=== PATIENT | male | born 1945 | race Caucasian/White ===

== ENCOUNTER 2020-02-28 11:58 | Emergency (ER) | payer MEDICARE, BC ==
--- NOTE | 2020-02-28 12:43 | EDM.PDOC ---
ED HPI GENERAL MEDICAL PROBLEM - General Chief Complaint: Cardiovascular Problem Stated Complaint: LEFT ARM NUMBNESS Time Seen by Provider: 02/28/20 12:27 Source of Information: Reports: Patient, Family History Limitations: Reports: No Limitations - History of Present Illness INITIAL COMMENTS - FREE TEXT/NARRATIVE: 74-year-old male presents to the ED for evaluation of sudden onset of severe sharp stabbing pain that started in his left upper arm shoulder anteriorly and then radiate into his left anterior upper chest. He states this is one of the worst pains he is ever experienced. He had to stop his 0 turn lawnmower that he was using at the time and going to the house. He states he took 10 aspirin tablets and within 10 to 15 minutes his pain was gone. At present he feels fine. He has no known coronary artery disease problems. 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 Pain started about 2 hours ago and is now completely gone. He of course is quite anxious. He knows that he has pain in both of his shoulders with rotator cuff disease with no previous surgery in either shoulder. Onset: Today, Sudden Onset Date: 02/28/20 Onset Time: 10:45 Duration: Hour(s):, Other (Pain has resolved completely.) Location: Reports: Upper Extremity, Left (Started in his left upper arm shoulder and then radiate into his left anterior upper chest. It was extremely sharp and stabbing like he been stabbed by a knife.) Quality: Reports: Sharp, Stabbing Severity: Severe (Was 10 out of 10.) Improves with: Reports: Medication (Improved after taking 10 aspirins and 15 to 20 minutes of time.) Worsens with: Reports: None Context: Reports: Other (He was riding his 0 turn lawnmower at the time which uses both anterior arms and shoulders to operate.). 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 (Took 10 aspirins by mouth when he went into the house.) - Related Data Allergies Allergy/AdvReac Type Severity Reaction Status Date / Time hydromorphone HCl AdvReac Severe Nausea and Verified 07/19/20 12:10 [From Dilaudid] Vomiting Home Meds: Home Meds Sertraline HCl 50 mg PO DAILY 05/20/14 [History] Multivitamin [Multivitamins] 1 tab PO DAILY 02/28/20 [History] [place]-3/DHA/Epa/Fish Oil [Fish Oil 1,000 mg Softgel] 1 tab PO DAILY 02/28/20 [History] Past Medical History Musculoskeletal History: Reports: Back Pain, Chronic, Osteoarthritis ( rotator cuff disease in both shoulders.), Other (See Below) (Has known bilateral) - Past Surgical History HEENT Surgical History: Reports: Cataract Surgery GI Surgical History: Reports: Cholecystectomy, Hernia Repair/Other Musculoskeletal Surgical History: Reports: Hip Replacement Social & Family History - Tobacco Use Smoking Status *Q: Never Smoker Second Hand Smoke Exposure: No - Caffeine Use Caffeine Use: Reports: None - Recreational Drug Use Recreational Drug Use: No - Living Situation & Occupation Living situation: Reports: Occupation: Employed ED ROS GENERAL - Review of Systems Review Of Systems: See Below Constitutional: Reports: No Symptoms HEENT: Reports: Glasses Respiratory: Denies: Shortness of Breath, Wheezing, Pleuritic Chest Pain, Cough, Sputum, Hemoptysis Cardiovascular: Reports: Chest Pain (History of present illness). Denies: Blood Pressure Problem, Claudication, Dyspnea on Exertion, Lightheadedness, Orthopnea, Palpitations Endocrine: Reports: No Symptoms. Denies: Fatigue GI/Abdominal: Reports: No Symptoms : Reports: No Symptoms Musculoskeletal: Reports: Shoulder Pain (He has bilateral shoulder pain due to degenerative arthritis as well as rotator cuff disease.) Skin: Reports: No Symptoms Neurological: Reports: No Symptoms Psychiatric: Reports: No Symptoms Hematologic/Lymphatic: Reports: No Symptoms Immunologic: Reports: No Symptoms ED EXAM, GENERAL - Physical Exam Exam: See Below Exam Limited By: No Limitations General Appearance: Alert, WD/WN, Anxious, Mild Distress, Other (Temperature is 36.4. Heart rate 66 and sinus respiratory of 16 BP 149/83 pulse ox 97% on room air.) Eye Exam: Bilateral Eye: Normal Inspection, PERRL Respiratory/Chest: No Respiratory Distress, Lungs Clear, Normal Breath Sounds, No Accessory Muscle Use, Chest Non-Tender, Other (Cannot elicit any chest wall pain on examination of his ribs. No subcutaneous emphysema no crepitus. No pain on firm compression of the ribs in the midclavicular line or sternum.) Cardiovascular: Normal Peripheral Pulses, Regular Rate, Rhythm, No Edema, No Gallop, No Murmur, No Rub Peripheral Pulses: 2+: Posterior Tibial (L), Posterior Tibial (R), Dorsalis Pedis (L), Dorsalis Pedis (R), 3+: Carotid (L), Carotid (R) GI/Abdominal: Normal Bowel Sounds, Soft, Non-Tender, No Organomegaly, No Abnormal Bruit, No Mass, Pelvis Stable Back Exam: Normal Inspection, Full Range of Motion. No: CVA Tenderness (L), CVA Tenderness (R) Extremities: Other (Examination of the biceps tendon show no tendinopathy in the short or long head insertion sites. Strength is normal in the left upper extremity. Minimal tenderness on firm compression over the coracoid process. He was able to abduct against resistance at 45 degrees as well as abduct to 90 degrees without any pain in the deltoid muscle distribution.) Neurological: Alert, Oriented ( Testing will be done once x-ray of his chest is completed.), CN II-XII Intact, Normal Cognition Psychiatric: Anxious Skin Exam: Warm (Jake anxious.), Dry, Intact, Normal Color, No Rash EKG INTERPRETATION EKG Date: 02/28/20 Time: 12:16 Rhythm: Other (Topic atrial rhythm at 63/min) Rate (Beats/Min): 63 [place]: Normal P-Wave: Variable (Jen inverted.) QRS: Other (Early R wave transition consider septal hypertrophy pattern. Decreased voltage throughout the limb leads.) QT: Normal EKG Interpretation Comments: Borderline ECG Course - Vital Signs Last Recorded V/S: Last Vital Signs Temp 36.4 C 02/28/20 12:08 Pulse 66 02/28/20 12:08 Resp 16 02/28/20 12:08 BP 149/83 H 02/28/20 12:08 Pulse Ox 97 02/28/20 12:08 - Orders/Labs/Meds Orders: Active Orders 24 hr Category Date Time Status EKG 12 Lead [EKG Documentation Completion] [RC] STAT Care 02/28/20 12:07 Active Chest 1V Frontal [CR] Stat Exams 02/28/20 12:39 Taken Labs: Laboratory Tests 07/19/20 07/19/20 07/19/20 Range/Units 12:25 12:25 12:25 WBC 7.75 (4.23-9.07) K/mm3 RBC 5.64 (4.63-6.08) M/mm3 Hgb 16.7 (13.7-17.5) gm/dl Hct 50.1 (40.1-51.0) % MCV 88.8 D (79.0-92.2) fl MCH 29.6 (25.7-32.2) pg MCHC 33.3 (32.2-35.5) g/dl RDW Std Deviation 46.7 H (35.1-43.9) fL Plt Count 266 (163-337) K/mm3 MPV 10.5 (9.4-12.3) fl Neut % (Auto) 62.4 (34.0-67.9) % Lymph % (Auto) 20.5 L (21.8-53.1) % [place] % (Auto) 11.6 (5.3-12.2) % Eos % (Auto) 3.9 (0.8-7.0) Baso % (Auto) 1.5 H (0.1-1.2) % Neut # (Auto) 4.83 (1.78-5.38) K/mm3 Lymph # (Auto) 1.59 (1.32-3.57) K/mm3 [place] # (Auto) 0.90 H (0.30-0.82) K/mm3 Eos # (Auto) 0.30 (0.04-0.54) K/mm3 Baso # (Auto) 0.12 H (0.01-0.08) K/mm3 D-Dimer, Quantitative 0.49 (0.19-0.50) mg/L Sodium 142 (136-145) mEq/L Potassium 4.3 (3.5-5.1) mEq/L Chloride 104 (98-107) mEq/L Carbon Dioxide 30 (21-32) mEq/L Anion Gap 12.3 (5-15) BUN 18 (7-18) mg/dL Creatinine 0.9 (0.7-1.3) mg/dL Est Cr Clr Drug Dosing 86.26 mL/min Estimated GFR (MDRD) > 60 (>60) mL/min BUN/Creatinine Ratio 20.0 H (14-18) Glucose 113 (83-115) mg/dL Calcium 9.2 (8.5-10.1) mg/dL Total Bilirubin 0.5 (0.2-1.0) mg/dL AST 19 (15-37) U/L ALT 27 (16-63) U/L Alkaline Phosphatase 83 (46-116) U/L CK-MB (CK-2) (0-3.6) ng/ml Troponin I < 0.017 (0.00-0.056) ng/mL Total Protein 7.5 (6.4-8.2) g/dl Albumin 3.8 (3.4-5.0) g/dl Globulin 3.7 gm/dL Albumin/Globulin Ratio 1.0 (1-2) 02/28/20 Range/Units 12:25 WBC (4.23-9.07) K/mm3 RBC (4.63-6.08) M/mm3 Hgb (13.7-17.5) gm/dl Hct (40.1-51.0) % MCV (79.0-92.2) fl MCH (25.7-32.2) pg MCHC (32.2-35.5) g/dl RDW Std Deviation (35.1-43.9) fL Plt Count (163-337) K/mm3 MPV (9.4-12.3) fl Neut % (Auto) (34.0-67.9) % Lymph % (Auto) (21.8-53.1) % [place] % (Auto) (5.3-12.2) % Eos % (Auto) (0.8-7.0) Baso % (Auto) (0.1-1.2) % Neut # (Auto) (1.78-5.38) K/mm3 Lymph # (Auto) (1.32-3.57) K/mm3 [place] # (Auto) (0.30-0.82) K/mm3 Eos # (Auto) (0.04-0.54) K/mm3 Baso # (Auto) (0.01-0.08) K/mm3 D-Dimer, Quantitative (0.19-0.50) mg/L Sodium (136-145) mEq/L Potassium (3.5-5.1) mEq/L Chloride (98-107) mEq/L Carbon Dioxide (21-32) mEq/L Anion Gap (5-15) BUN (7-18) mg/dL Creatinine (0.7-1.3) mg/dL Est Cr Clr Drug Dosing mL/min Estimated GFR (MDRD) (>60) mL/min BUN/Creatinine Ratio (14-18) Glucose (83-115) mg/dL Calcium (8.5-10.1) mg/dL Total Bilirubin (0.2-1.0) mg/dL AST (15-37) U/L ALT (16-63) U/L Alkaline Phosphatase (46-116) U/L CK-MB (CK-2) 2.0 (0-3.6) ng/ml Troponin I (0.00-0.056) ng/mL Total Protein (6.4-8.2) g/dl Albumin (3.4-5.0) g/dl Globulin gm/dL Albumin/Globulin Ratio (1-2) - Radiology Interpretation Free Text/Narrative:: 74-year-old male presents to the ED for evaluation of acute onset of severe sharp stabbing pain in his left anterior shoulder that then radiated to his left upper anterior chest. Pain was very sharp and stabbing like he been stabbed by a knife. He was using his 0 turn lawnmower at the time that the pain started. He went in the house feeling very ill washed his face since he was dirty and he took 10 baby aspirin's. 10 minutes later the pain was gone. The history suggest this was most likely musculoskeletal in origin because of the sharp stabbing nature of the pain. He has known bilateral rotator cuff disease in his shoulders but I could not elicit any weakness of the the abductors or the deltoid in his left shoulder while lying down. I will do further examination on his shoulders after completion of investigations. He is currently pain-free. His ECG does not show any signs of ischemia. Plan 1 view chest x-ray to be done. Routine labs including troponin and CPK and a d-dimer. - Re-Assessments/Exams Free Text/Narrative Re-Assessment/Exam: 02/28/20 13:00 portable chest x-ray has been completed. Did not take a good deep breath. Cardiac silhouette is slightly magnified on portable technique. There is no pneumothorax and visualized portion of the lungs appear to be clear. 02/28/20 13:01 Count is normal at 7.75. Auto differential shows 62% neutrophils. Hemoglobin is 16.7 with hematocrit of 50.1 suggesting that he is volume depleted and hemoconcentrated. Platelet counts 266,000. D-dimer is 0.49 normal range.. 02/28/20 13:13 Glucose 113 calcium is 9.2. Liver function is normal CK-MB is 2.0 troponin I is less than 0.017. Total protein is 7.5 with an albumin fraction of 3.8.3 result sodium 142 and a potassium of 4.3. Chloride 104 with a bicarb of 30. Anion gap is 12.3. BUN is 18 with a creatinine of 0.9. 02/28/20 13:23 he examined the patient in the standing position and went completely through his right shoulder girdle muscles and I could not identify any muscle tears to suggest a rotator cuff injury. There is no tenderness over the coracoid process or pectoralis minor or major insertion sites. Therefore I cannot determine exactly what caused his transient sharp stabbing chest pain. He does experience a good deal of muscle cramping in his lower extremities but never in his upper chest. Patient reassured at this point time I can find no evidence of heart related illness or blood clot in the lung. Follow-up with his personal care provider if any further similar problems occur. Departure - Departure Time of Disposition: 13:21 Disposition: Home, Self-Care 01 Condition: Fair Clinical Impression: Non-cardiac chest pain Referrals: Domenico Larsen Jr, MD [Primary Care Provider] - Forms: ED Department Discharge Additional Instructions: Evaluation in the emergency room today in regards to development of sudden onset of severe sharp stabbing pain originating in her left shoulder and traveling to the left upper anterior chest. This occurred while using your 0 turn lawnmower this morning. Pain dissipated after 10 to 15 minutes after taking aspirin tablets at home. Complete cardiac work-up carried out in the ED showed a normal ECG and normal chest x-ray and normal cardiac markers. Also no sign of a blood clot in the lung. Complete examination of the left shoulder I could not identify any rotator cuff tears or injuries. The history to me strongly suggest musculoskeletal origin to your pain with muscle spasm or partial tear of the muscle fiber to cause your pain that lasted transiently. At this time there are no restrictions. The lab work did suggest that you were low on fluids and I would suggest a strongly 20 ounces of Gatorade on the way home and another 20 ounces later today to rehydrate. Help prevent some muscle cramping that you are experiencing. If similar pains occur in the next day or 2 please follow-up with your personal care physician. At this time I can find no evidence of any heart related illness. Sepsis Event Note (ED) - Evaluation Sepsis Screening Result: No Definite Risk - Focused Exam Vital Signs: Vital Signs Temp Pulse Resp BP Pulse Ox 02/28/20 12:08 36.4 C 66 16 149/83 H 97 - My Orders Last 24 Hours: My Active Orders 02/28/20 12:07 EKG 12 Lead [EKG Documentation Completion] [RC] STAT 02/28/20 12:39 Chest 1V Frontal [CR] Stat - Assessment/Plan Last 24 Hours: My Active Orders 02/28/20 12:07 EKG 12 Lead [EKG Documentation Completion] [RC] STAT 02/28/20 12:39 Chest 1V Frontal [CR] Stat
[2020-02-28 13:36] VITALS: BP 132/80; PULSE 65
--- NOTE | 2020-02-29 05:22 | CR ---
Chest: Portable view of the chest was obtained. Comparison: Prior chest x-ray of 04/21/14. Heart size is normal. Tortuous thoracic aorta is seen. Lungs are clear with no acute parenchymal change. Bony structures are grossly intact. Impression: 1. Nothing acute is appreciated on portable chest x-ray. Diagnostic code #1 This report was dictated in MDT
== END 2020-02-28 13:31 | disposition home or self-care (01) ==
LOC: JD.ED 11:58
DX: R07.89 Other chest pain (principal); Z88.5 Allergy status to narcotic agent; Z79.899 Other long term (current) drug therapy
CPT/HCPCS: 36415; 71045; 71045-26; 80053; 82553; 84484; 85025; 85379; 93005; 93010; 99283; 99285-25

== ENCOUNTER 2023-08-11 09:33 | Emergency (ER) | payer MEDICARE, BC ==
[2023-08-11 10:09] VITALS: BP 130/85; PULSE 105
[2023-08-11] MEDS ORDERED: Sodium Chloride 0.9% 10 ML Syringe FLUSH PRN (10:21)
[2023-08-11] MEDS ORDERED: Iopamidol 755 Mg/ML 100 ML Bottle IVPUSH ONE (10:26)
[2023-08-11] MEDS ORDERED: Sodium Chloride 0.9% 1,000 ML IV SCH (10:30)
[2023-08-11] MEDS ORDERED: Sodium Chloride 0.9% 100 ML IV SCH (10:30)
[2023-08-11 11:01] LABS: BASOPHILS ABSOLUTE AUTO 0.1 K/mm3 (0.0-0.2); BASOPHILS PERCENT AUTO 0.7 % (0.0-1.0); EOSINOPHILS ABSOLUTE AUTO 0.2 K/mm3 (0.0-0.4); EOSINOPHILS PERCENT AUTO 1.3 % (0.0-6.0); HEMATOCRIT 43.3 % (42.0-52.0); HEMOGLOBIN 14.9 gm/dl (14.0-18.0); IMMATURE GRAN ABSOLUTE AUTO 0.05 K/mm3 (0.00-0.05); IMMATURE GRAN PERCENT AUTO 0.4 % (0.0-0.4); LYMPHOCYTES PERCENT AUTO 14.6 % (24.0-44.0); MEAN CORPUSCULAR HEMOGLOBIN 29.5 pg (28.0-32.0); MEAN CORPUSCULAR HGB CONC 34.4 g/dl (32.0-36.0); MEAN CORPUSCULAR VOLUME 85.7 fl (83.0-99.0); MEAN PLATELET VOLUME 9.8 fl (9.4-12.4); MONOCYTES ABSOLUTE AUTO 1.8 K/mm3 (0.0-0.8); MONOCYTES PERCENT AUTO 12.8 % (0.0-8.0); NEUTROPHILS ABSOLUTE AUTO 9.7 K/mm3 (1.8-7.7); NEUTROPHILS PERCENT AUTO 70.2 % (41.0-71.0); PLATELET COUNT,PLT 292 K/mm3 (150-400); RED BLOOD CELL COUNT 5.05 M/mm3 (4.52-5.90); WHITE BLOOD CELL COUNT,WBC 13.86 K/mm3 (3.9-11.3)
[2023-08-11 11:19] LABS: INR 1.07; PROTHROMBIN TIME 11.4 SECONDS (9.7-12.0)
[2023-08-11 11:20] LABS: PTT,PARTIAL THROMBOPLSTIN TIME 31.9 SECONDS (21.7-31.4)
[2023-08-11 11:26] LABS: A/G RATIO 0.6 (1-2); ALBUMIN 2.6 g/dl (3.4-5.0); ANION GAP 9.1 (5-15); BILIRUBIN TOTAL 0.9 mg/dL (0.2-1.0); BUN/CREATININE RATIO 17.8 (14-18); CREATININE 0.9 mg/dL (0.7-1.3); EST CRCL DRUG DOSING (CG) 82.45 mL/min; MAGNESIUM 1.8 mg/dL (1.8-2.4); POTASSIUM,K 3.1 mEq/L (3.5-5.1); PROTEIN TOTAL,TP 7.1 g/dl (6.4-8.2)
[2023-08-11 11:30] LABS: SLIDE REVIEW ABNORMAL SMEAR
[2023-08-11 11:36] LABS: C-REACTIVE PROTEIN 18.2 mg/dL (<1.0)
[2023-08-11] MEDS ORDERED: Apixaban 5 MG Tab PO ONE (13:17)
[2023-08-11] MEDS ORDERED: Potassium Chloride 10 MEQ in Premix Bag 1 BAG IV SCH (15:30)
[2023-08-11 16:26] LABS: CORONAVIRUS COVID-19 NAA NEGATIVE (NEGATIVE); INFLUENZA A NAA NEGATIVE (NEGATIVE)
== END 2023-08-11 17:00 ==
LOC: JD.ED 09:33
DX: I26.99 Other pulmonary embolism without acute cor pulmonale (principal); Z88.5 Allergy status to narcotic agent; Z20.822 Contact with and (suspected) exposure to COVID-19
CPT/HCPCS: 0240U; 36415; 71275; 80053; 83605; 83735; 83880; 84484; 85025; 85610; 85730; 86140; 87651; 93005; 96365; 99285; A9270; J3480; J3490; J7030; Q9967

== ENCOUNTER 2023-08-16 08:47 | Emergency (ER) | payer MEDICARE, BC ==
[2023-08-16] MEDS ORDERED: Sodium Chloride 0.9% 10 ML Syringe FLUSH PRN (09:22)
[2023-08-16] MEDS ORDERED: Sodium Chloride 0.9% 1,000 ML IV SCH (09:30)
[2023-08-16] MEDS ORDERED: Sodium Chloride 0.9% 10 ML Syringe FLUSH ONE (09:48)
[2023-08-16] MEDS ORDERED: Iopamidol 612 MG/ML 100 ML Bottle IVPUSH ONE (09:48)
[2023-08-16 09:53] LABS: BASOPHILS ABSOLUTE AUTO 0.1 K/mm3 (0.0-0.2); BASOPHILS PERCENT AUTO 1.3 % (0.0-1.0); EOSINOPHILS ABSOLUTE AUTO 0.3 K/mm3 (0.0-0.4); EOSINOPHILS PERCENT AUTO 3.7 % (0.0-6.0); HEMATOCRIT 43.7 % (42.0-52.0); HEMOGLOBIN 14.4 gm/dl (14.0-18.0); IMMATURE GRAN ABSOLUTE AUTO 0.04 K/mm3 (0.00-0.05); IMMATURE GRAN PERCENT AUTO 0.4 % (0.0-0.4); LYMPHOCYTES ABSOLUTE AUTO 1.4 K/mm3 (1.0-4.8); LYMPHOCYTES PERCENT AUTO 15.5 % (24.0-44.0); MEAN CORPUSCULAR HEMOGLOBIN 28.5 pg (28.0-32.0); MEAN CORPUSCULAR VOLUME 86.4 fl (83.0-99.0); MONOCYTES ABSOLUTE AUTO 0.9 K/mm3 (0.0-0.8); MONOCYTES PERCENT AUTO 10.2 % (0.0-8.0); NEUTROPHILS ABSOLUTE AUTO 6.3 K/mm3 (1.8-7.7); NEUTROPHILS PERCENT AUTO 68.9 % (41.0-71.0); PLATELET COUNT,PLT 338 K/mm3 (150-400); RED BLOOD CELL COUNT 5.06 M/mm3 (4.52-5.90); WHITE BLOOD CELL COUNT,WBC 9.15 K/mm3 (3.9-11.3)
[2023-08-16 10:13] LABS: INR 1.18; PROTHROMBIN TIME 12.5 SECONDS (9.7-12.0)
[2023-08-16 10:15] LABS: PTT,PARTIAL THROMBOPLSTIN TIME 35.9 SECONDS (21.7-31.4)
[2023-08-16 10:20] LABS: A/G RATIO 0.6 (1-2); ALBUMIN 2.6 g/dl (3.4-5.0); ANION GAP 10.6 (5-15); BILIRUBIN TOTAL 0.5 mg/dL (0.2-1.0); BUN/CREATININE RATIO 17.8 (14-18); CREATININE 0.9 mg/dL (0.7-1.3); EST CRCL DRUG DOSING (CG) 82.45 mL/min; POTASSIUM,K 3.6 mEq/L (3.5-5.1); PROTEIN TOTAL,TP 6.8 g/dl (6.4-8.2)
[2023-08-16 12:53] LABS: BILIRUBIN,URINE NEGATIVE (Negative); COLOR,URINE YELLOW (Yellow); GLUCOSE,URINE NEGATIVE (Negative); KETONES,URINE NEGATIVE (Negative); LEUKOCYTE ESTERASE,URINE NEGATIVE (Negative); NITRITE,URINE NEGATIVE (Negative); OCCULT BLOOD,URINE 3+ (Negative); PROTEIN,URINE 1+ (Negative); UROBILINOGEN,URINE 0.2 (0.2-1.0)
[2023-08-16 13:02] LABS: BACTERIA,URINE MANY /hpf (FEW); RBC,URINE TOO NUMEROUS TO CNT /hpf (0-5); SQUAMOUS EPITHELIAL CELLS,UR 0-5 /hpf (0-5)
[2023-08-16 13:03] LABS: AMORPHOUS SEDIMENT,URINE MODERATE /hpf (NOT SEEN); MUCUS,URINE FEW /hpf (FEW)
[2023-08-16 13:04] LABS: APPEARANCE,URINE CLOUDY (Clear)
[2023-08-16 14:46] VITALS: BP 114/59; PULSE 78
== END 2023-08-16 14:10 | disposition home health service (06) ==
LOC: JD.ED 08:47
DX: R31.9 Hematuria, unspecified (principal); Z79.01 Long term (current) use of anticoagulants; Z79.899 Other long term (current) drug therapy; Z88.8 Allergy status to other drugs, medicaments and biological substances
CPT/HCPCS: 36415; 74177; 80053; 81001; 85025; 85610; 85730; 87086; 96360; 96361; 99284; J3490; J7030; Q9967; 99283

== ENCOUNTER 2023-09-14 15:44 | Emergency (ER) | payer MEDICARE, BC ==
[2023-09-14] MEDS: Sodium Chloride 0.9% 10 ML Syringe FLUSH PRN (16:16)
[2023-09-14 16:24] LABS: BASOPHILS ABSOLUTE AUTO 0.1 K/mm3 (0.0-0.2); BASOPHILS PERCENT AUTO 0.9 % (0.0-1.0); EOSINOPHILS ABSOLUTE AUTO 0.3 K/mm3 (0.0-0.4); EOSINOPHILS PERCENT AUTO 2.5 % (0.0-6.0); HEMATOCRIT 46.1 % (42.0-52.0); HEMOGLOBIN 15.3 gm/dl (14.0-18.0); IMMATURE GRAN ABSOLUTE AUTO 0.05 K/mm3 (0.00-0.05); IMMATURE GRAN PERCENT AUTO 0.4 % (0.0-0.4); LYMPHOCYTES ABSOLUTE AUTO 2.7 K/mm3 (1.0-4.8); LYMPHOCYTES PERCENT AUTO 21.5 % (24.0-44.0); MEAN CORPUSCULAR HGB CONC 33.2 g/dl (32.0-36.0); MEAN CORPUSCULAR VOLUME 87.5 fl (83.0-99.0); MEAN PLATELET VOLUME 10.2 fl (9.4-12.4); MONOCYTES ABSOLUTE AUTO 1.4 K/mm3 (0.0-0.8); MONOCYTES PERCENT AUTO 11.1 % (0.0-8.0); NEUTROPHILS ABSOLUTE AUTO 7.9 K/mm3 (1.8-7.7); NEUTROPHILS PERCENT AUTO 63.6 % (41.0-71.0); PLATELET COUNT,PLT 304 K/mm3 (150-400); RED BLOOD CELL COUNT 5.27 M/mm3 (4.52-5.90)
[2023-09-14] MEDS: Sodium Chloride 0.9% 100 ML IV SCH (16:27)
[2023-09-14] MEDS: Iopamidol 755 Mg/ML 100 ML Bottle IVPUSH ONE (16:27)
[2023-09-14 16:42] LABS: A/G RATIO 0.9 (1-2); ALANINE AMINOTRANSFERASE,ALT 33 U/L (16-63); ALBUMIN 3.2 g/dl (3.4-5.0); ALKALINE PHOSPHATASE 66 U/L (46-116); ANION GAP 13.2 (5-15); ASPARTATE AMNIOTRANSFERASE,AST 15 U/L (15-37); BILIRUBIN TOTAL 0.5 mg/dL (0.2-1.0); BLOOD UREA NITROGEN,BUN 20 mg/dL (7-18); C-REACTIVE PROTEIN <0.2 mg/dL (<1.0); CALCIUM 8.8 mg/dL (8.5-10.1); CARBON DIOXIDE,CO2 27 mEq/L (21-32); CHLORIDE,CL 105 mEq/L (98-107); EST CRCL DRUG DOSING (CG) 74.21 mL/min; ESTIMATED GFR 78 mL/min (>60); GLUCOSE RANDOM 132 mg/dL (70-99); POTASSIUM,K 4.2 mEq/L (3.5-5.1); PROTEIN TOTAL,TP 6.9 g/dl (6.4-8.2); SODIUM,NA 141 mEq/L (136-145)
[2023-09-14 18:29] VITALS: BP 123/78; PULSE 72
== END 2023-09-14 17:37 | disposition home or self-care (01) ==
LOC: JD.ED 15:44
DX: R07.89 Other chest pain (principal); F41.9 Anxiety disorder, unspecified; I10 Essential (primary) hypertension; Z79.01 Long term (current) use of anticoagulants; Z79.899 Other long term (current) drug therapy; Z88.8 Allergy status to other drugs, medicaments and biological substances
CPT/HCPCS: 36415; 71275; 80053; 84484; 85025; 86140; 93005; 99285; J3490; Q9967; 93010; 99284

== ENCOUNTER 2024-02-17 07:18 | Day surgery (SDC) | payer MEDICARE, BC ==
[~2024-02-17 07:18] MED LIST: Lactated Ringers 1,000 ML IV SCH; Morphine 8 MG, EPINEPHrine 0.3 MG, Cefuroxime 750 MG, Ketorolac 30 MG, Sodium Chloride ... PRN; Pregabalin 25 MG Cap PO SCH; Sodium Chloride 0.9% 10 ML Syringe FLUSH PRN; Sodium Chloride 0.9% 10 ML Syringe FLUSH SCH
[2024-02-17] MEDS: Lactated Ringers 1,000 ML IV SCH (07:31)
[2024-02-17] MEDS: Acetaminophen 325 MG Tab PO SCH (08:05)
[2024-02-17] MEDS: oxyCODONE ER 10 MG TAB.ER PO SCH (08:06)
[2024-02-17] MEDS ORDERED: Propofol 200 MG/20 ML SDV ONE (08:45)
[2024-02-17] MEDS ORDERED: Lidocaine 1% 5 ML VIAL ONE (08:45)
[2024-02-17] MEDS ORDERED: fentaNYL 100 MCG/2 ML SDV ONE (08:45)
[2024-02-17] MEDS ORDERED: Midazolam 1 MG/ML 2 ML SDV ONE (08:45)
[2024-02-17] MEDS ORDERED: ceFAZolin 2 GM Vial ONE (08:46)
[2024-02-17] MEDS ORDERED: Lactated Ringers 1,000 ML ONE ×2 (09:10→10:15)
[2024-02-17] MEDS ORDERED: ePHEDrine 50 MG/ML SDV ONE (09:11)
[2024-02-17] MEDS ORDERED: Ondansetron 4 MG/2 ML SDV ONE (09:15)
[2024-02-17] MEDS ORDERED: fentaNYL 100 MCG/2 ML SDV IVPUSH PRN (09:40)
[2024-02-17] MEDS ORDERED: Ondansetron 4 MG/2 ML SDV IVPUSH PRN (09:40)
[2024-02-17] MEDS ORDERED: Phenylephrine 1% 10 MG/ML SDV ONE (09:43)
[2024-02-17] MEDS: Tranexamic Acid 1,000 MG/10 ML Vial ONE (10:00)
[2024-02-17] MEDS: Vancomycin 1 GM SDV ONE (10:00)
[2024-02-17] MEDS: Morphine 8 MG, EPINEPHrine 0.3 MG, Cefuroxime 750 MG, Ketorolac 30 MG, Sodium Chloride ... PRN (10:00)
[2024-02-17] MEDS ORDERED: Dexamethasone 4 MG/ML 5 ML MDV ONE (10:17)
[2024-02-17] MEDS ORDERED: EPINEPHrine 1 MG/ML SDV ONE (10:41)
[2024-02-17] MEDS ORDERED: Ropivacaine 0.5% 5 MG/ML 30 ML SDV ONE (10:41)
[2024-02-17] MEDS ORDERED: Citric Acid/Sodium Citrate Solution 30 ML Cup PO ONE (10:55)
[2024-02-17] MEDS: Citric Acid/Sodium Citrate Solution 30 ML Cup PO ONE (10:57)
[2024-02-17] MEDS: Famotidine 20 MG/2 ML SDV IVPUSH ONE (11:20)
[2024-02-17] MEDS: Metoclopramide 10 MG/2 ML SDV IVPUSH ONE (11:20)
[2024-02-17 14:14] VITALS: BP 110/70; PULSE 88
[2024-02-17] MEDS: oxyCODONE 5 MG Tab PO PRN (14:53)
== END 2024-02-17 14:55 | disposition home or self-care (01) ==
LOC: JD.SDS 07:18
PROVIDERS: ATTEND Orthopaedic Surgery
DX: M17.11 Unilateral primary osteoarthritis, right knee (principal); I10 Essential (primary) hypertension; K21.9 Gastro-esophageal reflux disease without esophagitis; F41.9 Anxiety disorder, unspecified; Z87.891 Personal history of nicotine dependence; Z79.899 Other long term (current) drug therapy
CPT/HCPCS: 0055T; 27447; 64447; 73560; 97110; 97161; A9270; C1713; C1776; J0171; J0690; J0697; J1100; J1885; J2250; J2270; J2371; J2405; J2704; J2765; J2795; J3010; J3370; J3490; J7120

== ENCOUNTER → 2024-04-20 | Day surgery (SDC) | payer MEDICARE, BC ==
[~2024-04-20] MED LIST changes: +Dexamethasone 4 MG/ML 5 ML MDV ONE; +EPINEPHrine 1 MG/ML SDV ONE; +Lactated Ringers 1,000 ML IV ONE; -Lactated Ringers 1,000 ML IV SCH; -Morphine 8 MG, EPINEPHrine 0.3 MG, Cefuroxime 750 MG, Ketorolac 30 MG, Sodium Chloride ... PRN; -Pregabalin 25 MG Cap PO SCH; +Propofol 200 MG/20 ML SDV ONE; +Ropivacaine 0.5% 5 MG/ML 30 ML SDV ONE; -Sodium Chloride 0.9% 10 ML Syringe FLUSH PRN; -Sodium Chloride 0.9% 10 ML Syringe FLUSH SCH; +dexmedeTOMIDine HCl 200 MCG/2 ML SDV ONE; +fentaNYL 100 MCG/2 ML SDV ONE
[2024-04-20] MEDS: fentaNYL 100 MCG/2 ML SDV IVPUSH PRN (07:25)
[2024-04-20] MEDS: oxyCODONE 5 MG Tab PO ONE (08:10)
[2024-04-20 08:32] VITALS: BP 124/74; PULSE 68
[2024-04-20] MEDS: fentaNYL 100 MCG/2 ML SDV ONE (08:54)
== END | disposition home or self-care (01) ==
LOC: JD.SDS 05:55
PROVIDERS: ATTEND Orthopaedic Surgery
DX: M24.661 Ankylosis, right knee (principal); K21.9 Gastro-esophageal reflux disease without esophagitis; D49.4 Neoplasm of unspecified behavior of bladder; N42.9 Disorder of prostate, unspecified; I26.94 Multiple subsegmental thrombotic pulmonary emboli without acute cor pulmonale; L60.2 Onychogryphosis; Z79.899 Other long term (current) drug therapy; Z88.8 Allergy status to other drugs, medicaments and biological substances; Z79.2 Long term (current) use of antibiotics; Z87.891 Personal history of nicotine dependence
CPT/HCPCS: 27570; 64447; A9270; J0171; J1100; J2704; J2795; J3010; J7120; 01380; J3490